=== PATIENT | female | born 1965 | race Caucasian/White ===

== ENCOUNTER → 2022-10-12 14:57 | Outpatient (CLI) | payer BC, SELFPAY ==
--- NOTE | ~2022-10-12 | MM_ITS ---
EXAMINATION: MM screening chance BI w krunal HISTORY: Screening mammogram TECHNIQUE: Craniocaudal and mediolateral oblique 3-D tomosynthesis images were obtained and synthetic 2-D images were generated. CAD analysis was submitted and interpreted. COMPARISON: No prior mammogram is available for comparison at this institution. BREAST PARENCHYMAL COMPOSITION: There are scattered areas of fibroglandular density. FINDINGS: There is no evidence of suspicious mass, calcification, or architectural distortion to sugg est malignancy in either breast. There has been no suspicious interval change. IMPRESSION: 1. No mammographic evidence of malignancy. 2. Recommend routine screening mammography in one year. BI-RADS Category 1: Negative Reviewed, dictated and finalized at location A. 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
== END ==
PROVIDERS: PCP Internal Medicine; Visit Provider Nurse Practitioner
DX: Z12.31 Encounter for screening mammogram for malignant neoplasm of breast (principal)
CPT/HCPCS: 77063; 77067

== ENCOUNTER 2024-03-20 13:51 | Outpatient (CLI) | payer BC, SELFPAY ==
--- NOTE | ~2024-03-20 | MM_ITS ---
EXAMINATION: MM screening chance BI w krunal HISTORY: Screening TECHNIQUE: Craniocaudal and mediolateral oblique 3-D tomosynthesis images were obtained and synthetic 2-D images were generated. CAD analysis was submitted and interpreted. COMPARISON: 10/12/2022 BREAST PARENCHYMAL COMPOSITION: Not dense: There are scattered areas of fibroglandular density. FINDINGS: There is no evidence of suspicious mass, calcification, or architectural distortion to sugg est malignancy in either breast. There has been no suspicious interval change. IMPRESSION: 1. No mammographic evidence of malignancy. 2. Recommend routine screening mammography in one year. BI-RADS Category 1: Negative Reviewed, dictated and finalized at location B.
== END 2024-03-20 13:52 ==
PROVIDERS: PCP Internal Medicine; Visit Provider Internal Medicine
DX: Z12.31 Encounter for screening mammogram for malignant neoplasm of breast (principal)
CPT/HCPCS: 77063; 77067

== ENCOUNTER 2024-04-02 14:24 | Outpatient (CLI) | payer BC, SELFPAY ==
--- NOTE | ~2024-04-02 | DEXA_ITS ---
Bone Density Report Name: MARLA BAL Age: 58 Sex: Female Ethnicity: White Date of : 1965 Indication: postmenopausal; screening for osteoporosis; height loss; hysterectomy; Referring Provider: SEDRICK NGUYEN Study: Bone densitometry was performed. Exam Date: April 02, 2024 Accession number: [id number] Bone Density: Region BMD T-score Z-score Classification AP Spine(L1-L4) 1.124 0.7 2.0 Normal Femoral Neck (Left) 1.080 2.1 3.3 Normal Total Hip (Left) 1.135 1.6 2.4 Normal Femoral Neck (Right) 1.090 2.2 3.4 Normal Total Hip (Right) 1.133 1.6 2.4 Normal Total Hip Mean 1.134 1.6 2.4 Normal World Health Organization criteria for BMD impression classify patients as: Normal (T-score at or above -1.0), Osteopenia (T-score between -1.0 and -2.5), or Osteoporosis (T-score at or below -2.5). 10-year Fracture Risk: FRAX not reported because: All T-scores for Spine Total, Hip Total, Femoral Neck at or above -1.0 Clinical Information Provided by Patient: Has used the following medications: Vitamin D Has the following medical conditions: Hysterectomy Patient maximum height was 68.0 Drinks caffeinated beverages Onset of menses at age 11 Number of children 2 Impression: The patient has normal bone mass. Discussion: BONE DENSITY IS ABOVE THE MINIMUM DESIRABLE LEVEL AT ALL SKELETAL SITES TESTED. This patient?s bone mineral density is above the minimum desirable level (T-score -1.0 or better) at all sites measured. The patient should follow a healthful lifestyle (good nutrition with adequate calcium and vitamin D, and appropriate weight-bearing exercise). Follow-Up: Consider repeating this study in 5 years or sooner if there is some new clinical indication. Reported by: EDEN on 04/02/2024 2:55:00 PM. Reviewed, dictated and finalized at location AClint BUSTAMANTE
== END 2024-04-02 14:25 | disposition home or self-care (01) ==
LOC: ANHIMG 14:25
PROVIDERS: PCP Internal Medicine; Visit Provider Internal Medicine
DX: Z13.820 Encounter for screening for osteoporosis (principal); Z78.0 Asymptomatic menopausal state
CPT/HCPCS: 77080

== ENCOUNTER 2024-06-09 13:13 | Outpatient (CLI) | payer BC, SELFPAY ==
--- NOTE | ~2024-06-09 | US_ITS ---
EXAMINATION: US transvaginal DATE: 06/09/2024 13:39 INDICATION: Postmenopausal bleeding. TECHNIQUE: Multiple transvaginal sonographic images of the pelvis were obtained. COMPARISON: None. FINDINGS: The uterus measures 7.3 x 4.1 x 4.6 cm. There is no free fluid in the pelvis. The endometrial complex measures 4 mm in thickness. There is a 2.0 cm intramural fibroid. The ovaries are not visualized. IMPRESSION: 1. Normal endometrial complex. 2. 2.0 cm uterine fibroid. Reviewed, dictated and finalized at location A.
== END 2024-06-09 13:14 | disposition home or self-care (01) ==
PROVIDERS: PCP Obstetrics & Gynecology Gynecology; Visit Provider Obstetrics & Gynecology Gynecology
DX: D25.9 Leiomyoma of uterus, unspecified (principal); N95.0 Postmenopausal bleeding
CPT/HCPCS: 76830

== ENCOUNTER 2025-01-19 14:13 | Outpatient (CLI) | payer BC, MEDICAID, SELFPAY ==
--- NOTE | ~2025-01-19 | XR_ITS ---
XR hip RT 1V w AP pelvis 01/19/2025 14:25 Indication: Right hip pain Procedure: 2 views right hip including AP pelvis Comparison: No prior studies for comparison. Findings: Mild osteoarthritis of the right hip. No fracture, subluxation or dislocation. No significa nt soft tissue abnormality. No foreign bodies. Impression: 1: Mild osteoarthritis of the right hip. Reviewed, dictated and finalized at location A. Impression: 1: Mild osteoarthritis of the right hip.
--- OUTSIDE RECORDS SUMMARY | 2025-01-19 14:36 | XMS_ITS | Clinical Summary ---
Author Organization [employer] [address] [place] [address] [place] [address] [address] Care Team Providers Care Multimedia Programmer Name Role Phone Zoey Brush DO Primary Care Provider Allergies No known active allergies Medications ondansetron (ZOFRAN) 4 mg Tablet Take 1 Tablet (4 mg) by mouth every 8 hours as needed for Nausea. 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 Gender Identity Not on file Sexual Orientation Not on file Last Filed Vital Signs Vital Sign Reading Time Taken Comments Blood Pressure 137/79 06/06/2019 11:05 PM CDT Pulse 62 06/06/2019 11:05 PM CDT Temperature 36.8 C (98.2 F) 06/06/2019 5:21 PM CDT Respiratory Rate 14 06/06/2019 11:05 PM CDT Oxygen Saturation 96% 06/06/2019 11:05 PM CDT Inhaled Oxygen Concentration - - Weight 79.4 kg (175 lb) 06/06/2019 5:21 PM CDT Height 172.7 cm (5' 8) 06/06/2019 5:21 PM CDT Body Mass Index 26.61 06/06/2019 5:21 PM CDT Plan of Treatment Health Maintenance Due Date Last Done Comments HEPATITIS B VACCINES (1 of 3 - 19+ 3-dose series) 1984 HPV/Cotest (21-29) 1986 CERVICAL CANCER SCREENING 1995 HPV/Cotest (30-65) 1995 PAP SMEAR 1995 COLORECTAL SCREENING 2010 Colorectal Cancer Screening 2010 FIT-DNA Q 3 years 2010 FIT/FOBT Q 1 year 2010 Flex Sig/CT Colonography Q 5 years 2010 ZOSTER VACCINE (1 of 2) 2015 BREAST CANCER SCREENING 10/01/2022 10/01/19, 09/30/2020, 10/20/2019, Additional history exists DTAP/TDAP/TD VACCINES (2 - T d or Tdap) 12/30/2022 12/30/2012 INFLUENZA VACCINE (#1) 2024 06/20/2013 Procedures Procedure Name Priority Date/Time Associated Diagnosis Comments MAMMO 3D YOLY SCREEN BILAT W OR WO CAD Routine 10/01/2021 10:17 AM BUSHEL WORKER Visit for screening mammogram from Last 3 Months or Most Recently Relevant to Health Maintenance Results * MAMMO SCRN BILAT 3D YOLY W OR WO CAD (10/01/2021 10:17 AM BUSHEL WORKER) Anatomical Region Laterality Modality Breast Bilateral Mammography 10/01/2021 10:1 7 AM BUSHEL WORKER Impressions 10/03/2021 9:58 AM BUSHEL WORKER IMPRESSION: No mammographic evidence of malignancy. RECOMMENDATIONS: Routine screening mammogram in one year. DICTATION LOCATION: [facility] Narrative 10/03/2021 9:58 AM BUSHEL WORKER BILATERAL FULL-FIELD DIGITAL SCREENING MAMMOGRAM WITH CAD WITH 3D TOMOSYNTHESIS DATE: 10/01/2021 10:17 AM HISTORY: Routine screening. TECHNIQUE: Full-field digital craniocaudal and mediolateral oblique projections of both breasts were obtained. Low-dose full-field digital breast tomosynthesis examination was performed with 2D and 3D acquisitions. Examination is read in conjunction with computer aided detection. COMPARISON: 2020, 2019 and 2018 BREAST COMPOSITION: Heterogeneously dense, which limits the sensitivity of mammography. FINDINGS: No suspicious mass, suspicious microcalcifications, or architectural distortion in either breast is identified. Since the prior study, there has been no significant interval change. The computer aided diagnosis detects no significant abnormality. OVERALL FINAL ASSESSMENT: BI-RADS CATEGORY 1 : Negative Procedure Note Ruy Toth MD - 10/03/2021 BILATERAL FULL-FIELD DIGITAL SCREENING MAMMOGRAM WITH CAD WITH 3D TOMOSYNTHESIS DATE: 10/01/2021 10:17 AM HISTORY: Routine screening. TECHNIQUE: Full-field digital craniocaudal and mediolateral oblique projections of both breasts were obtained. Low-dose full-field digital breast tomosynthesis examination was performed with 2D and 3D acquisitions. Examination is read in conjunction with computer aided detection. COMPARISON: 2020, 2019 and 2018 BREAST COMPOSITION: Heterogeneously dense, which limits the sensitivity of mammography. FINDINGS: No suspicious mass, suspicious microcalcifications, or architectural distortion in either breast is identified. Since the prior study, there has been no significant interval change. The computer aided diagnosis detects no significant abnormality. OVERALL FINAL ASSESSMENT: BI-RADS CATEGORY 1 : Negative IMPRESSION: No mammographic evidence of malignancy. RECOMMENDATIONS: Routine screening mammogram in one year. DICTATION LOCATION: [facility] Zoey Brush DO MAMMO ORDERABLES Final Resu lt from Last 3 Months or Most Recently Relevant to Health Maintenance Insurance [facility] BLUE ACCESS/TRUE BLUE PPO Care Teams Multimedia Programmer Relationship Specialty Start Date End Date Zoey Brush DO [address] [place] [address] PCP - General Family Practice 10/10/18
--- OUTSIDE RECORDS SUMMARY | 2025-01-19 14:36 | XMS_ITS | Encounter Summary ---
Author Organization [facility] Address 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
--- OUTSIDE RECORDS SUMMARY | 2025-01-19 14:36 | XMS_ITS | Encounter Summary ---
Author Organization [facility] Address 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
--- OUTSIDE RECORDS SUMMARY | 2025-01-19 14:36 | XMS_ITS | Continuity of Care Document ---
Author Organization [employer] [facility] Address [address] [place] [address] Phone Care Team Providers Care Change Lead Name Role Phone Gonsalo HI Zoey Unavailable Unavailable Allergies, Adverse Reactions, Alerts Substance Reaction Status Criticality No Known Allergies Active No Inform ation Medications Medication Instructions Dosage Effective Dates (start - stop) Status Comments Dosoquin 5,500 unit-200 mcg tablet twice weekly - Active multivitamin capsule - Activ e Procedures Procedure Date Pt inelig neg scrn depres COMPREHEN METABOLIC PANEL [facility] 1 LIPID PANEL VITAMIN D, 25-HYDROXY ROUTINE VENIPUNCTURE PREVENTATIVE-EST: 40-64 BODY MASS INDEX DOCD SYST BP LT 130 MM HG DIAST BP < 80 MM HG Pt inelig neg scrn depres COMPREHEN METABOLIC PANEL [facility] 9 LIPID PANEL THYROID STIMULATION HORMONE(TSH) 2018 ROUTINE VENIPUNCTURE PREVENTATIVE-EST: 40-64 BODY MASS INDEX DOCD SYST BP LT 130 MM HG DIAST BP < 80 MM HG Advance Directives Directive Yes / No Effective Date File Name No Information Encounters Encounter Description Practice Location Reason(s) For Visit Diagnoses Date Provider Providers Copied on Encounter [facility], [address], [place], [place], [id number], [place] tel:[phone] [facility] No Information 2 Gonsalo Kimbleissa. [address], [address], [place], [place], [id number] , [place]. tel:[phone] [facility], [address], [place], [place], [address], [place] tel:[phone] [facility] No Information Hilton La. [address], [address], [place], [place], [address] , [place]. tel:[phone] PREVENTATIVE- EST: [facility], [address], [place], [place], [id number], [place] tel:[phone] [facility] preventive exam (chief complaint)Vi tamin D deficiency (chief complaint) Body mass index (BMI) 28.0-28.9, adultPhysical examVitamin D deficiency Canela La. [address], [address], [place], [place], [address] , [place]. [phone] Referring Provider: [address], [place], [address] . tel:[phone] PREVENTATIVE- EST: [facility], [address], [place], [place], [address], [place] tel:[phone] [facility] preventive exam (chief complaint) Body mass index (BMI) 26.0-26.9, adultPhysical examSeborrheic keratoses 9 Canela La. [address], [address], [place], [place], [address] , [place]. [phone] Referring Provider: [address], [place], [address] . tel:[phone] [facility], [address], [place], [place], [address], [place] tel:[phone] [facility] Physical exam 8 Hilton Tovar. [address], [address], [place], [place], [address] , [place]. [phone] Referring Provider: Zoey Brush, [address], [place], [address] . tel:[phone] [facility], [address], [place], [place], [address], tel:[phone] [facility] No Information 8 Hilton Tovar. [address], [address], [place], [place], [address] , [place]. [phone] Family History Family Member Type Diagnosis Age At Onset Father Problem (finding) raised blood lipids Father Problem (finding) hypertension Mother Problem (finding) Alive and well Father Problem (finding) Alive and well Paternal grandfather Problem (finding) stomach cancer Maternal grandmother Problem (finding) Diabetes mellit us Immunizations Vaccine Date Status Comments Tdap administered Source: Other R egistry Payers Payer name Insurance type Covered green party ID Authormarinaa judah(s) BCBS ACCESS CHOICE BL [id number] Social History Type Description Quantity Date Captured Comments Alcohol Use Details Unknown Caffeine Use Details Unknown Tobacco Use Status No Information Smoking Status No Information Sex Female Chief Complaint And Reason For Visit No Information Reason For Referral Reason For Referral No Information Plan Of Treatment Date Type Action Status Goal Dietary management education , guidance, and counseling completed Goal Dietary management education , guidance, and counseling completed History Of Present Illness Encounter Date Complaint History Of Prese nt Illness Vitamin D deficiency Taking Jessie min D/K2 - due to check vitamin D level preventive exam Her menses is ab sent. Details: Rare period still. Negative for: breast discharge, breast lump(s) and breast pain. Menopausal symptoms negative for: hot flashes, insomnia and night sweats. Menopausal symptoms positive for: vaginal dryness. Pertinent negatives include abnormal vaginal bleeding, difficulty falling sleep, sleep disturbances, urinary incontinence, urinary urgency, vaginal discharge and vaginal itching. She reports taking a vitamin D supplement daily. She does take multivitamins daily. The patient does not use tobacco. She does drink alcohol. preventive exam Last LMP was 12/2018. Negative for: breast discharge, breast lump(s) and breast pain. Pertinent negatives include abnormal vaginal bleeding, difficulty falling sleep, sexual dysfunction, vaginal discharge and vaginal itching. She reports getting calcium supplement daily. She reports taking a vitamin D supplement daily. She does take multivitamins daily. The patient does not use tobacco. Tobacco cessation has been discussed. She does drink alcohol. Additional information: Patient falls asleep well but often wakes at 3 or 4 amPatient has mole to her back that would this checked. Patient denies irritation, no itching or bleeding. Functional Status Date Functional Assessmen t No Information Instructions Date Instruction Additional Infor preston Checking vitamin D l evelContinue current supplement Related to Vitamin D deficiency Work on healthy diet and aim for 150 minutes of cardiovascular activity or exercise per weekChecking fasting labs in office today - our office will contact you with test resultsDue for well women examination with PAP next year Related to Physical exam Dietary management e ducation, guidance, and counseling Related to Body mass index (BMI) 28.0-28.9, adult Work on healthy diet and aim for 150 minutes of cardiovascular activity or exercise per weekWill call you with test resultsDue to Well women exam with PAP test next year Related to Physical exam This is a benign or non-cancerous skin lesion that are often rough appearing and can be light blancas to nearly black in color. Related to Seborrheic keratoses Dietary management e ducation, guidance, and counseling Related to Body mass index (BMI) 26.0-26.9, adult Assessments Type Assessment Date No Information Patient Care Teams Name Effective Dates (start - stop) Status Members No Information
--- OUTSIDE RECORDS SUMMARY | 2025-01-19 14:36 | XMS_ITS | Encounter Summary ---
Author Organization [employer] Address 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
== END 2025-01-19 14:14 | disposition home or self-care (01) ==
PROVIDERS: PCP Internal Medicine; Visit Provider Internal Medicine
DX: M16.11 Unilateral primary osteoarthritis, right hip (principal)
CPT/HCPCS: 73501

== ENCOUNTER 2025-03-06 14:15 | Outpatient (RCR) | payer BC, SELFPAY ==
--- NOTE | 2025-01-30 11:10 | OPREHPOC ---
Outpatient Therapy Plan of Care This is a Multidisciplinary Plan of Care that may contain components documented by all disciplines (PT, OT, and ST.) PT Problem 1 PT Problem #1 Knowledge Deficit PT Goal 1 Goal / Goal Update 1* independent with HEP 2* pt demonstrate correct posture and body mechanics with lifting, during PT session Target Visit 8 PT Problem 2 PT Problem #2 Pain PT Goal 1 Goal / Goal Update 1* pain at worst of 4/10 2* pt transfer sit to stand without pain increase Target Visit 8 PT Problem 3 PT Problem #3 Impaired Strength PT Goal 1 Goal / Goal Update increase trunk and R hip strength to improve stability 1* single leg standing 20 seconds with good stability 2* hip extension strength of 4+/5 Target Visit 8 PT Problem 4 PT Problem #4 Impaired Flexibility PT Goal 1 Goal / Goal Update increase R hip flexibility, to improve mobility of hip joint and symmetry to her L hip 1*piriformis stretch in supine with cross leg reports same as L 2* anterior hip-quad length with prone knee flexion 125' Target Visit 8
--- NOTE | 2025-01-30 11:10 | PTOPEVAL1 ---
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 She reports gradual increase in hip pain, without injury, comes and goes- not able to really relate to why- stairs and sit to stand, and more activity. Also reports history of back pain intermittent . Self assessment with LE functional scale of 25% limitation in activity level. She is active. With the evaluation: pain is increased with standing trunk extension, supine R hip IR, prone hip extension; weakness of R hip extension and tightness over R piriformis and anterior hip-quad muscles; poor standing position of her trunk. Skilled PT services are indicated for treatment to R hip and lumbar-sacral areas: modalities to decrease pain; therapeutic exercises to increase trunk and hip strength and flexibility with education for HEP and posture. Plan of Care Interventions Electrical Stimulation,Hot Pack/Cold Pack,Manual Therapy,Mechanical Traction,Neuro Re-education, Patient/Caregiver Education,Therapeutic Activities ,Therapeutic Exercise,Ultrasound PT Services Indicated Yes Treatment Frequency and 1-2x/wk Duration These treatments will address the objective and functional deficits as defined above. The patient will be advanced safely and appropriately in order for the patient to progress towards his/her prior level of function. Additional exercises will be introduced and as well as a comprehensive home exercise program upon discharge, if needed, ?to ensure carryover of functional gains achieved in the clinic. This treatment plan has been reviewed and agreement upon by the patient.
--- NOTE | 2025-03-06 15:12 | OPREHPOC ---
Outpatient Therapy Plan of Care This is a Multidisciplinary Plan of Care that may contain components documented by all disciplines (PT, OT, and ST.) PT Problem 1 PT Problem #1 Knowledge Deficit PT Goal 1 Goal / Goal Update 1* independent with HEP 2* pt demonstrate correct posture and body mechanics with lifting, during PT session 03-06-25 d/c goals met Target Visit 8 Progress Met PT Problem 2 PT Problem #2 Pain PT Goal 1 Goal / Goal Update 1* pain at worst of 4/10 2* pt transfer sit to stand without pain increase 03-06-25 d/c goals not met: 7/10 at worst and pain increase with sit to stand Target Visit 8 Progress Not Met PT Problem 3 PT Problem #3 Impaired Strength PT Goal 1 Goal / Goal Update increase trunk and R hip strength to improve stability 1* single leg standing 20 seconds with good stability 2* hip extension strength of 4+/5 03-06-25 d/c goals not met: #1- met time but unsteady; #2 4/5 Target Visit 8 Progress Not Met PT Problem 4 PT Problem #4 Impaired Flexibility PT Goal 1 Goal / Goal Update increase R hip flexibility, to improve mobility of hip joint and symmetry to her L hip 1*piriformis stretch in supine with cross leg reports same as L 2* anterior hip-quad length with prone knee flexion 125' 03-06-25 d/c goals 2 met: #1- R side tighter reported Target Visit 8 Progress Partially Met
--- NOTE | 2025-03-06 15:12 | PTOPDC ---
Assessment and note entered by Delfina Welsh, PT Assessment Status Discharge ICD-10 Condition Codes (PT) Pain in right hip M25.551 Subjective Information have the exercises to work on at home, so ready to finish therapy; Reported Pain Level Pain Score Self Report Additional Pain Score Comments pain range in the past week 2-02/26; shooting pain at times increase pain: stairs, sit for about an hour and go to stand; decrease pain: walk a little, change positions, ice, heat, PRN over the counter meds Assessment PT Clinical Summary Nikki has received 8 PT sessions. Compared to the initial evaluation: pain rating from -02/26 to 2-02/26; LE functional scale rating from 25 to 14% limitation in activity level; increase flexibility of R anterior hip-quad muscle with prone knee flexion; increase strength of hips and trunk; continues to have decreased ROM and pain with R hip IR and decreased piriformis length of R hip; standing trunk extension increases back and hip pain; education completed for HEP, posture, body mechanics and pain management with monitoring activity and frequent positional changes. The goals were partially met. Discharge PT. She is to continue with her HEP and activity as tolerated. Plan of Care PT Services Indicated No
== END 2025-03-06 17:54 | disposition home or self-care (01) ==
LOC: ANHPT 14:15
PROVIDERS: PCP Internal Medicine; Visit Provider Internal Medicine
DX: M25.551 Pain in right hip (principal)
CPT/HCPCS: 97110; 97140; 97161; 97530

== ENCOUNTER 2025-03-23 13:49 | Outpatient (CLI) | payer BC, SELFPAY ==
--- NOTE | ~2025-03-23 | MM_ITS ---
EXAMINATION: MM screening chance BI w krunal HISTORY: Screening TECHNIQUE: Craniocaudal and mediolateral oblique 3-D tomosynthesis images were obtained and synthetic 2-D images were generated. CAD analysis was submitted and interpreted. COMPARISON: Comparison to multiple prior studies sequentially, with oldest reviewed study dated 10/12. BREAST PARENCHYMAL COMPOSITION: There are scattered areas of fibroglandular density. FINDINGS: There is no evidence of suspicious mass, calcification, or architectural distortion to sug gest malignancy in either breast. IMPRESSION: 1. No mammographic evidence of malignancy. 2. Recommend routine screening mammography in one year. BI-RADS Category 1: Negative Reviewed, dictated and finalized at location B.
== END 2025-03-23 13:50 | disposition home or self-care (01) ==
PROVIDERS: PCP Obstetrics & Gynecology Gynecology; Visit Provider Internal Medicine
DX: Z12.31 Encounter for screening mammogram for malignant neoplasm of breast (principal)
CPT/HCPCS: 77063; 77067

== ENCOUNTER 2025-07-27 14:19 | Outpatient (CLI) | payer BC, SELFPAY ==
--- NOTE | ~2025-07-27 | MR_ITS ---
EXAM/PROCEDURE: MR hip RT wo con HISTORY: M25.551 - Pain in right hip COMPARISON: None available. TECHNIQUE: Multiplanar MRI of the right hip without contrast FINDINGS: No fracture subluxation or dislocation present. Moderately advanced osteoarthritic degenerative changes in the hips right worse than left with joint space, chondral thinning, and marginal spur formation developing. No definite labral tear on this nonarthrographic series, however there is a 10 x 8 x 8 mm cystic is lesion is present adjacent to the labrum in the anterolateral aspect of the tectum on image 17 series 8, image 16 series 13. Extra articular soft tissues including ligaments and the hip rotator muscles appear within normal limits. IMPRESSION: Moderately advanced osteoarthritic appearing changes in the right hip with small joint effusion. A 10 mm anterolateral subchondral acetabular cyst possibly associated with arthritic change or previous inflammation/injury. Reviewed, dictated and finalized at location A. HANDISING REPRESENTATIVE IMPRESSION: Moderately advanced osteoarthritic appearing changes in the right hip with smal l joint effusion. A 10 mm anterolateral subchondral acetabular cyst possibly as sociated with arthritic change or previous inflammation/injury.
--- NOTE | ~2025-07-27 | MR_ITS ---
EXAM/PROCEDURE: MR lumbar spine wo con HISTORY: M54.50 - Low back pain, unspecified COMPARISON: None available. TECHNIQUE: Lumbar spine MRI FINDINGS: No acute or aggressive bony or soft tissue process seen. The conus tapers normally at the level of L1. Degenerative changes present throughout the lumbar spine involving disc spaces and posterior elements. Level specific findings as follows: T12-L1: Mild degenerative change L1-2: Mild degenerative change L2-3: Mild degenerative change L3-4: Mild to moderate hyperostosis of the facets with thickening of the ligamentum flavum and slight anterolisthesis L3 on L4. Mild bilateral neural foraminal narrowing with no spinal canal stenosis or discrete disc protrusion. L4-5: Moderately severe thickening of ligamentum flavum with mild hyperostosis of the facet joints and mild to moderate posterior spondylosis results in slight narrowing of the lateral recesses but no spinal canal stenosis or discrete disc protrusion. Mild bilateral neural foraminal narrowing right worse than left. L5-S1: No spinal canal stenosis or discrete disc protrusion. Mild bilateral neural foraminal narrowing. IMPRESSION: Multilevel degenerative changes in the lumbar spine with no spinal canal stenosis or discrete disc protrusion. Level specific findings as detailed above. Reviewed, dictated and finalized at location A. MANAGER
--- NOTE | ~2025-07-27 | MR_ITS ---
EXAM/PROCEDURE: MR sacroiliac jts wo con HISTORY: M25.551 - Pain in right hip COMPARISON: None available. TECHNIQUE: Standard technique for MRI of the sacroiliac joints performed FINDINGS: Mild osteoarthritic appearing changes in both SI joints. No erosive changes are advanced osteoarthritic changes. Bones and soft tissues about the SI joints appear within normal limits. IMPRESSION: Mild osteoarthritic changes in both SI joints. No evidence of inflammatory or aggressive sacroiliac joint disease. Reviewed, dictated and finalized at location A. EYOR BELT REPAIRER IMPRESSION: Mild osteoarthritic changes in both SI joints. No evidence of inflammatory or a ggressive sacroiliac joint disease.
== END 2025-07-27 14:20 | disposition home or self-care (01) ==
PROVIDERS: PCP Internal Medicine; Visit Provider Internal Medicine
DX: M54.50 Low back pain, unspecified (principal); M25.551 Pain in right hip; M54.18 Radiculopathy, sacral and sacrococcygeal region; G89.29 Other chronic pain
CPT/HCPCS: 72148; 72195; 73721